=== PATIENT | female | born 1985 | race Asian ===

== ENCOUNTER → 2023-07-09 12:56 | Outpatient (REF) | payer OTHER, SELFPAY | LOC: HWRAD 12:56 | PROVIDERS: ATTENDING PHYSICIAN Obstetrics & Gynecology; FAMILY PHYSICIAN Internal Medicine | DX: N94.6 Dysmenorrhea, unspecified (principal) | CPT/HCPCS: 76830; 76856 ==

== ENCOUNTER → 2023-08-28 09:18 | Outpatient (REF) | payer OTHER, SELFPAY | LOC: HWRAD 09:18 | PROVIDERS: ATTENDING PHYSICIAN Obstetrics & Gynecology; FAMILY PHYSICIAN Internal Medicine | DX: N83.292 Other ovarian cyst, left side (principal) | CPT/HCPCS: 76830; 76856 ==

== ENCOUNTER → 2024-08-19 09:48 | Outpatient (REF) | payer OTHER, SELFPAY | LOC: HWRAD 09:48 | PROVIDERS: ATTENDING PHYSICIAN Obstetrics & Gynecology; FAMILY PHYSICIAN Internal Medicine | DX: N93.9 Abnormal uterine and vaginal bleeding, unspecified (principal) | CPT/HCPCS: 76830; 76856 ==